=== PATIENT | female | born 1930 | race Caucasian/White ===

== ENCOUNTER 2016-11-21 05:16 | Inpatient (IN) | payer MEDICARE ==
[~2016-11-21] VITALS: Ht 162.6 cm; Wt 42.0 kg
[~2016-11-21 05:16] MED LIST: LIDO700A4 TP
[2016-11-21] MEDS ORDERED: FENTANYL PF 100 MCG/2 ML VIAL. IV ONE (06:00)
[2016-11-21] MEDS ORDERED: ONDANSETRON PF 4 MG/2 ML VIAL. IV ONE (07:00)
[2016-11-21 07:24] LABS: BASO % 0 % (0-3); EOS % 1 % (0-3); HEMATOCRIT 37.9 % (36.0-47.0); LYMPH # 0.9 x10^3/uL (1.0-4.8); LYMPH % 11 % (24-48); MEAN CORPUSCULAR HEMOGLOBIN 29 pg (25-35); MEAN CORPUSCULAR HGB CONC 32 g/dL (31-37); MEAN CORPUSCULAR VOLUME 91 fL (79-100); MONO % 6 % (0-9); NEUT % 81 % (31-73); PLATELET COUNT 172 x10^3/uL (140-400); RED BLOOD COUNT 4.18 x10^6/uL (3.50-5.40); RED CELL DISTRIBUTION WIDTH 14.6 % (11.5-14.5); WHITE BLOOD COUNT 7.9 x10^3/uL (4.0-11.0)
--- NOTE | 2016-11-21 07:27 | RAD ---
Pelvis with left hip, 2 views, 11/21/2016: History: Hip pain There is severe bony demineralization. No acute fracture or dislocation is identified. Cortical irregularity at the level of the left greater trochanters probably chronic. There are mild degenerative changes at the hip joints. IMPRESSION: 1. Demineralization. 2. No acute bony abnormality is detected.
[2016-11-21 07:28] LABS: CALCIUM 9.1 mg/dL (8.5-10.1); CREATININE 0.8 mg/dL (0.6-1.0); GFR 68.3; POTASSIUM 4.4 mmol/L (3.5-5.1)
[2016-11-21 07:34] LABS: ALBUMIN/GLOBULIN RATIO 0.9 (1.0-1.7); TOTAL PROTEIN 6.2 g/dL (6.4-8.2)
--- NOTE | 2016-11-21 07:47 | PHYS DOC ---
Past Medical History Past Medical History: Other Additional Past Medical Histor: HISTORT OF PE, POST HERPETIC NEURALGIA, MUSCLE WEAKNESS, HYPOXEMIA, Past Surgical History: No Surgical History Alcohol Use: None Drug Use: None Adult General Chief Complaint Chief Complaint: HIP PAIN [facility] HPI Patient is a 85 year old female who presents with complaint of left hip pain. The patient was brought from a intermediate after EMS was called due to patient being found on the floor. The patient reportedly rolled out of the bed this morning by accident. Patient states that she is having severe pain in her left hip. Patient states that she is unable to move her left lower extremity due to pain. Patient is unable to quantify the extent of her pain but says that it is a little bit less than what she experienced with childbirth. During triage the patient was reported as having 10 out of 10 pain. Patient denies any other injuries. Patient states that she knows she is currently at [facility] for treatment. Review of Systems Review of Systems Constitutional: Denies fever or chills [] Eyes: Denies change in visual acuity, redness, or eye pain [] HENT: Denies nasal congestion or sore throat [] Respiratory: Denies cough or shortness of breath [] Cardiovascular: No additional information not addressed in HPI [] GI: Denies abdominal pain, nausea, vomiting, bloody stools or diarrhea [] : Denies dysuria or hematuria [] Musculoskeletal: Left hip pain [] Integument: Denies rash or skin lesions [] Neurologic: Denies headache, focal weakness or sensory changes [] Current Medications Current Medications Current Medications Medications (Trade) Dose Ordered Sig/[facility] Start Time Stop Time Status Last Admin Dose Admin Fentanyl Citrate (Fentanyl 2ml Vial) 50 mcg PRN Q15MIN PRN 11/21/16 06:45 11/22/16 06:44 Ondansetron HCl (Zofran) 4 mg 1X ONCE 11/21/16 07:00 11/21/16 07:01 DC Allergies Allergies Allergies Coded Allergies Type Severity Reaction Last Updated Verified No Known Drug Allergies 06/28/16 No Physical Exam Physical Exam Constitutional: Alert, afebrile, appears in moderate to severe discomfort. [] HENT: Normocephalic, atraumatic, bilateral external ears normal, oropharynx moist, no oral exudates, nose normal. [] Eyes: PERRLA, EOMI, conjunctiva normal, no discharge. [] Neck: Normal range of motion, no tenderness, supple, no stridor. [] Cardiovascular:Heart rate regular rhythm, no murmur [] Lungs & Thorax: None restricted air movement bilaterally, no wheezes or rales [] Abdomen: Bowel sounds normal, soft, no tenderness, no masses, no pulsatile masses. [] Skin: Warm, dry, no erythema, no rash. [] Back: No tenderness, no CVA tenderness. [] Extremities: Left lower extremity held in flexed position, left greater trochanteric tenderness to palpation, pulses 2+ distal to site of injury. [] Neurologic: Alert and oriented X 3, normal motor function, normal sensory function, no focal deficits noted. [] Current Patient Data Vital Signs Vital Signs Date Time Temp Pulse Resp B/P Pulse Ox O2 Delivery O2 Flow Rate FiO2 11/21/16 06:08 16 Room Air 11/21/16 05:23 97.9 101 179/84 98 97.9 Lab Values Laboratory Tests Test 11/21/16 07:00 White Blood Count 7.9x10^3/uL (4.0-11.0) Red Blood Count 4.18x10^6/uL (3.50-5.40) Hemoglobin 12.0g/dL (12.0-15.5) Hematocrit 37.9% (36.0-47.0) Mean Corpuscular Volume 91fL (79-100) Mean Corpuscular Hemoglobin 29pg (25-35) Mean Corpuscular Hemoglobin Concent 32g/dL (31-37) Red Cell Distribution Width 14.6% (11.5-14.5) H Platelet Count 172x10^3/uL (140-400) Neutrophils (%) (Auto) 81% (31-73) H Lymphocytes (%) (Auto) 11% (24-48) L Monocytes (%) (Auto) 6% (0-9) Eosinophils (%) (Auto) 1% (0-3) Basophils (%) (Auto) 0% (0-3) Neutrophils # (Auto) 6.4x10^3uL (1.8-7.7) Lymphocytes # (Auto) 0.9x10^3/uL (1.0-4.8) L Monocytes # (Auto) 0.5x10^3/uL (0.0-1.1) Eosinophils # (Auto) 0.1x10^3/uL (0.0-0.7) Basophils # (Auto) 0.0x10^3/uL (0.0-0.2) Sodium Level 148mmol/L (136-145) H Potassium Level 4.4mmol/L (3.5-5.1) Chloride Level 106mmol/L (98-107) Carbon Dioxide Level 37mmol/L (21-32) H Anion Gap 5 (6-14) L Blood Urea Nitrogen 14mg/dL (7-20) Creatinine 0.8mg/dL (0.6-1.0) Estimated GFR (Cockcroft-Gault) 68.3 BUN/Creatinine Ratio 18 (6-20) Glucose Level 118mg/dL (70-99) H Calcium Level 9.1mg/dL (8.5-10.1) Total Bilirubin 1.0mg/dL (0.2-1.0) Aspartate Amino Transferase (AST) 28U/L (15-37) Alanine Aminotransferase (ALT) 26U/L (14-59) Alkaline Phosphatase 85U/L (46-116) Total Protein 6.2g/dL (6.4-8.2) L Albumin 3.0g/dL (3.4-5.0) L Albumin/Globulin Ratio 0.9 (1.0-1.7) L Laboratory Tests 11/21/16 07:00 Laboratory Tests 11/21/16 07:00 EKG EKG Not performed [] Radiology/Procedures Radiology/Procedures [facility] [address] [place] [address] IMAGING REPORT Signed PATIENT: STARLA HOFF ACCOUNT: [id number] : 1930 LOCATION: ER AGE: 85 SEX: F EXAM STATUS: REG ER ORD. PHYSICIAN: LASHANDA HUTCHINSON DO REASON: hip pain PROCEDURE: HIP LEFT 1 VIEW WITH PELVIS Pelvis with left hip, 2 views, 11/21/2016: History: Hip pain There is severe bony demineralization. No acute fracture or dislocation is identified. Cortical irregularity at the level of the left greater trochanters probably chronic. There are mild degenerative changes at the hip joints. IMPRESSION: 1. Demineralization. 2. No acute bony abnormality is detected. DICTATED and SIGNED BY: DANIE GARNER MD DATE: 11/21/16 0719 CC: LASHANDA HUTCHINSON DO; SOFÍA LONDON M.D. ~ [] Course & Med Decision Making Course & Med Decision Making Pertinent Labs and Imaging studies reviewed. (See chart for details) The patient was found to have a left intertrochanteric fracture. The patient will be admitted to the hospital as she is unable to ambulate or care for self. An order was placed for Dr. Hahn to consult on patient in hospital. The patient was admitted to Dr. Wayne. Dragon Disclaimer Dragon Disclaimer This electronic medical record was generated, in whole or in part, using a voice recognition dictation system. Departure Departure Impression: Primary Impression: Intertrochanteric fracture of left femur Additional Impression: Moderate protein malnutrition Disposition: ADMITTED INPATIENT Admitting Physician: Nestor Wayne Condition: STABLE Referrals: SOFÍA LONDON M.D. (PCP) Problem Qualifiers Primary Impression: Intertrochanteric fracture of left femur Encounter type: initial encounter Fracture type: closed Qualified Code: S72.142A - Displaced intertrochanteric fracture of left femur, initial encounter for closed fracture YULISA CERRATO MD Nov 21, 2016 07:47
[2016-11-21] MEDS: FENTANYL PF 100 MCG/2 ML VIAL. IV PRN ×2 (08:43→11:11)
--- NOTE | 2016-11-21 09:30 | ACF ---
Admit Criteria Forms Admit Criteria Forms Admit Criteria Forms MUSCULOSKELETAL DISEASE GRG Clinical Indications for Admission to Inpatient Care (Place 'X' for any and all applicable criteria): Hospital admission is needed for appropriate care of the patient because of ANY ONE of the following: [X]I. Fracture, dislocation, or other musculoskeletal injury requiring inpatient care(medical) as indicated by ANY ONE of the following(4)(5)(6)(7) [ ]a) Vertebral fracture requiring observation for instability or neurologic compromise (8) [ ]b) Compartment syndrome (proven or cannot be ruled out during observation level of care) (9) [ ]c) Limb-threatening injury [ ]d) Major injury requiring inpatient stabilization such as traction initiation or external fixation before internal fixation or closure of complex or open fracture [ ]e) Major injury requiring inpatient treatment after emergency or observation level care (as appropriate) [X]f) Severe pain requiring acute inpatient management [ ]II. Newly diagnosed or suspected bone, joint, or orthopedic device infection (e.g., osteomyelitis, septic arthritis) needing ANY ONE of the following(1)(2)(3) [ ]a) IV antibiotics that cannot be initiated in other than inpatient setting (e.g., patient too unstable or home infusion not available) [ ]b) Device removal or replacement [ ]c) Bone or soft tissue debridement [ ]d) Joint drainage (drain placement or repetitive aspirations) [ ]III. Severe rheumatologic disease (e.g., systemic lupus erythematosus, rheumatoid arthritis) with complications or comorbidities (Also use Optimal Recovery Care Criteria or General Recovery Criteria as appropriate on the basis of predominant condition), including ANY ONE of the following(10 )(11)(12)(13) [ ]a) Severe infection (e.g., GENERAL SERVICE OFFICER infection, sepsis) (14) [ ]b) Respiratory complications, including ANY ONE of the following: [ ]i) Pleural effusion with respiratory compromise [ ]ii) Pulmonary hypertension with congestive failure [ ]iii) Respiratory failure [ ]iv) Pulmonary hemorrhage (15) [ ]c) Hematologic disease, including ANY ONE of the following: [ ]i) Coagulopathy with bleeding [ ]ii) Thrombosis with hypercoagulable state [ ]iii) Thrombotic thrombocytopenic purpura [ ]d) Cerebritis with seizures, psychosis, or other severe abnormalities [ ]e) Vertebral destruction with monitoring needed for cervical myelopathy& possible respiratory compromise [ ]f) Exacerbation that requires inpatient treatment (e.g., intravenous immunosuppression) (16) [ ]g) Acute renal failure [ ]IV. Severe vasculitis with complications or comorbidities (Also use Optimal Recovery Care Criteria or General Recovery Criteria as appropriate on the basis of predominant condition), including ANY ONE of the following(11)(12)(17)(18)(19)(20) [ ]a) GENERAL SERVICE OFFICER vasculitis with seizures, psychosis, or other severe abnormalities (22) [ ]b) Renal failure (16) [ ]c) Pulmonary hemorrhage (15) [ ]d) Cerebral infarction [ ]e) Gastrointestinal ischemia [ ]f) Gangrene or threatened amputation [ ]g) Exacerbation that requires inpatient treatment (e.g., intravenous immunosuppression) (19)(21) [ ]V. Severe myopathy as indicated by ANY ONE of the following (28)(29) [ ]a) New onset of airway compromise or inability to swallow [ ]b) Respiratory deterioration with observation needed for impending respiratory failure [ ]c) Exacerbation that requires inpatient treatment (e.g., intravenous immunosuppression) [ ]. Severe gout (crystal arthropathy) as indicated by ANY ONE of the following (23)(24) [ ]a) Severe pain requiring acute inpatient management [ ]b) Exacerbation that requires inpatient treatment (e.g., intravenous treatment) [ ]VII.Rhabdomyolysis and ANY ONE of the following (25)(26)(27) [ ]a) Acute renal failure [ ]b) Need for intravenous hydration after emergency or observation level care (as appropriate) [ ]c) Inability to maintain oral hydration [ ]d) Change in mental status [ ]e) Electrolyte abnormality that remains after emergency or observation level care (as appropriate) [ ]VIII Post amputation complication, as indicated by ANY ONE of the following [ ]a) Infection [ ]b) Dehiscence [ ]c) Myodesis failure [ ]IX. Severe pain requiring acute inpatient management as indicated by ALL of the following (30)(31)(32) [ ]a) Continuous or frequent (e.g., every 2 to 4 hrs) parenteral analgesics required [A] [ ]b) Rapid improvement expected from treatment or acute intervention ( e.g., surgery, anesthesia procedure[B] [ ]X. Musculoskeletal Disease and ALL of the following: [ ]a) Symptom or finding for which emergency and observation care have failed or are not considered appropriate (Use General Criteria: Observation Care as appropriate) [ ]b) Presence of ANY ONE of the following [ ]i) A General Admission Criteria [ ]ii) A Pediatric General Admission Criteria The original [facility] content created by [facility] has been revised. The portions of the content which have been revised are identified through the use of italic text or in bold, and [facility] has neither reviewed nor approved the modified material. All other unmodified content is copyright [facility]. Please see references footnoted in the original [facility] edition 2016 JULIA HATHAWAY Nov 21, 2016 09:30
--- NOTE | 2016-11-21 10:15 | RAD ---
CT of the pelvis without contrast, 11/21/2016: History: Fall, suspected left hip fracture Noncontrast scans were obtained with multiplanar reconstructions produced. There is a fracture of the proximal left femur at the junction of the base of the femoral neck with the greater trochanter. The greater trochanteric fracture fragment is mildly comminuted with posterior displacement of fracture fragments. A major fracture line extending through the intertrochanteric region is not seen. There is a fracture of the left superior pubic ramus at its junction with the left pubic body. The fracture is slightly impacted. There is also a nondisplaced fracture of the medial aspect of the inferior pubic ramus on the left which appears to be recent. No other acute fractures identified. There are mild degenerative changes at both hip joints. A small hematoma is noted in the left gluteal musculature. The urinary bladder is mildly distended. IMPRESSION: 1. Acute comminuted fracture of the proximal left femur at the base of the greater trochanter. 2. Nondisplaced fractures of the inferior and superior pubic rami of the left which also appear to be recent.
[2016-11-21] MEDS: IV 1/2 NORMAL SALINE 1,000 ML IV SCH (15:04)
[2016-11-21 15:40] VITALS: BP 146/67
[2016-11-21] MEDS ORDERED: ASPI-482 PO (16:18)
[2016-11-21 16:34] LABS: INR 1.1 (0.8-1.1); PROTHROMBIN TIME PATIENT 13.2 SEC (11.7-14.0)
[2016-11-21] MEDS: MORPHINE SULFATE 2 MG/ML DISP.SYRIN. IV PRN ×2 (17:00→22:41)
[2016-11-21 19:00] VITALS: BP 116/52
[2016-11-21 23:00] VITALS: BP 133/59
[2016-11-22] MEDS: IV 1/2 NORMAL SALINE 1,000 ML IV SCH ×3 (02:08→17:34)
[2016-11-22 03:00] VITALS: BP 125/58
--- NOTE | 2016-11-22 04:36 | HP ---
ADMIT DATE: 11/21/2016 CHIEF COMPLAINT: Hip fracture. HISTORY OF PRESENT ILLNESS: The patient is an 85-year-old detention patient who had an unfortunate fall at the detention, apparently rolling out of her bed this morning. She had severe pain in her left hip, unable to move her extremities. In the Emergency Room, she was found with acute comminuted fracture of the proximal left femur at the base of the greater trochanter as well as nondisplaced fractures of the inferior and superior pubic rami on the left. The patient is therefore admitted for further pain control. ER doctor spoke with Dr. Hahn from [facility]. PAST MEDICAL HISTORY: (Please note this was obtained from the chart as the patient is quite confused). History of PE, postherpetic neuralgia, general muscle weakness, and history of hypoxemia. FAMILY HISTORY: Unable to obtain. SOCIAL HISTORY: The patient currently in a detention. No toxic habits. ALLERGIES: No known drug allergies. HOME MEDICATIONS: Reconciled with MAR. REVIEW OF SYSTEMS: The patient does have pain when she moves. Denies any pain while at rest. She is quite confused and does not remember when she got her last pain medications. She is determined to get up as she feels that would be the appropriate thing to do. Otherwise fairly pleasant, unable to recollect further details. PHYSICAL EXAMINATION: VITAL SIGNS: From today show a blood pressure of 116/52, heart rate of 82, respiratory rate at 20. She is afebrile. GENERAL: This is an 85-year-old woman, frail, malnourished, awake, alert, but confused. HEENT: Shows no scleral icterus. Oral mucosa is pink and moist. NECK: Supple. LUNGS: Clear to auscultation bilaterally. CARDIOVASCULAR: Regular rate and rhythm. ABDOMEN: Positive bowel sounds, soft, nontender. EXTREMITIES: Show no edema. Left lower extremity has significant pain with minimal movement and palpation in the upper femoral area. Mild edema noted on the left ankle as well. SKIN: No bruising apparent. LABORATORY DATA: CBC from today shows a WBC of 7.9, hemoglobin 12, platelets of 172. Chemistries with a BUN and creatinine of 14 and 0.8, sodium at 148, CO2 at 37, albumin at 3.0. LFTs within normal. IMAGING: CT of the pelvis with left trochanteric and pubic rami fractures as above. ASSESSMENT AND PLAN: The patient is an 85-year-old who unfortunately sustained trochanteric hip fracture on the left after mechanical fall. We will await input from Dr. Hahn regarding surgical options. For the time being, we will continue pain medications. She is able to eat today. We will make her n.p.o. in the morning in anticipation for possible surgery. We will start Lovenox after probable surgery. TUNG HERNÁNDEZ MD DR: UR/nts JOB#: [id number] / [id number] SOFÍA Lutz MD MTDD
--- NOTE | 2016-11-22 06:10 | CONS ---
DATE OF CONSULTATION: 11/21/2016 REASON FOR CONSULTATION: Left hip pain. HISTORY OF PRESENT ILLNESS: The patient is an 85-year-old female who was apparently rolled out of bed this morning and was found on the floor and EMS was called and brought in to the Emergency Department. She spent most of the day in the ER because the hospital was otherwise full. She reports severe pain in her left hip and is unable to move the left leg. She denies any loss of consciousness or other injuries, was previously independently ambulatory. PAST MEDICAL HISTORY: Significant for history of pulmonary embolism, some shingles, hypoxia and some muscle weakness. Denies any previous surgical history. ALLERGIES: No known drug allergies. FAMILY HISTORY: No significant family history. REVIEW OF SYSTEMS: Significant really for the left hip pain on any motion or weightbearing. She denies any focal weakness, numbness, tingling or other extremity involvement. SOCIAL HISTORY: Independently ambulatory. Denies alcohol, drug use or smoking. PHYSICAL EXAMINATION: EXTREMITIES: Painful with any range of motion of the left hip. No gross instability is noted. Leg lengths are equal. She has normal examination of the contralateral hip, but has pain with weightbearing through an extended extremity and is weak in abduction, negative straight leg raise. She has normal knee and ankle range of motion with intact motor function, distal pulses, sensation, reflexes and skin in both lower extremities throughout. IMAGING: X-rays including a CT scan of the pelvis show a nondisplaced fracture of the greater trochanter and acceptably aligned inferior and superior pubic rami fractures on the left. IMPRESSION: Left greater trochanter and nondisplaced superior and inferior pubic rami fractures. TREATMENT PLAN: I had talked to her about the nonoperative nature of this injury that she can do protected weightbearing with a walker that these fractures would generally heal slowly, but are expected to be nonoperative in nature. I am going to get her a lay tray, so she can eat and put in orders for physical therapy tomorrow, so she can ambulate with some pain control. MARY LOU PATEL MD DR: BRUCE/ulices JOB#: [id number] / [id number]
[2016-11-22 07:00] VITALS: BP 122/62
[2016-11-22] MEDS: MORPHINE SULFATE 2 MG/ML DISP.SYRIN. IV PRN (10:59)
[2016-11-22 11:00] VITALS: BP 118/62
[2016-11-22] MEDS: LIDOCAINE (700MG/PATCH) PATCH. TD SCH (13:00)
[2016-11-22] MEDS: HYDROCODONE/APAP 7.5/325MG TABLET. PO PRN (13:00)
--- NOTE | 2016-11-22 14:14 | PDOC ---
PROGRESS NOTES Chief Complaint Chief Complaint 1. Left greater trochanter and nondisplaced superior and inferior pubic rami fractures. 2. h/o PE 3. H/O postherpetic neuralgia 4. low po intake, chronic 5. mild malnutrition 6. hypernatremia plan: 1. fu with ortho, no sx 2. protected WBAT 3. pain control 4. dc mora tmr ivf labs tmr vtid test pending SW for rehab left rib XR to rule out fx History of Present Illness History of Present Illness c/o left rib pain very sensitive to touch Vitals Vitals Vital Signs Date Time Temp Pulse Resp B/P Pulse Ox O2 Delivery O2 Flow Rate FiO2 11/22/16 14:04 Nasal Cannula 3.0 11/22/16 11:00 98.2 76 12 118/62 100 98.2 Physical Exam General: Alert, Oriented X3, Cooperative Heart: Regular rate, Normal S1, Normal S2 Lungs: Clear Abdomen: Normal bowel sounds, Soft Extremities: No clubbing, No cyanosis Labs LABS Laboratory Tests Test 11/21/16 16:00 Nasal Screen MRSA (PCR) Negative (Negative) Review of Systems Review of Systems no fever, chills, sob or chest pain Assessment and Plan Assessmemt and Plan Problems Medical Problems: (1) Intertrochanteric fracture of left femur Status: Acute (2) Moderate protein malnutrition Status: Acute Problems: Comment Review of Relevant I have reviewed the following items nidhi (where applicable) has been applied. Labs Laboratory Tests Test 11/21/16 07:00 11/21/16 16:00 White Blood Count 7.9x10^3/uL (4.0-11.0) Red Blood Count 4.18x10^6/uL (3.50-5.40) Hemoglobin 12.0g/dL (12.0-15.5) Hematocrit 37.9% (36.0-47.0) Mean Corpuscular Volume 91fL (79-100) Mean Corpuscular Hemoglobin 29pg (25-35) Mean Corpuscular Hemoglobin Concent 32g/dL (31-37) Red Cell Distribution Width 14.6% (11.5-14.5) Platelet Count 172x10^3/uL (140-400) Neutrophils (%) (Auto) 81% (31-73) Lymphocytes (%) (Auto) 11% (24-48) Monocytes (%) (Auto) 6% (0-9) Eosinophils (%) (Auto) 1% (0-3) Basophils (%) (Auto) 0% (0-3) Neutrophils # (Auto) 6.4x10^3uL (1.8-7.7) Lymphocytes # (Auto) 0.9x10^3/uL (1.0-4.8) Monocytes # (Auto) 0.5x10^3/uL (0.0-1.1) Eosinophils # (Auto) 0.1x10^3/uL (0.0-0.7) Basophils # (Auto) 0.0x10^3/uL (0.0-0.2) Prothrombin Time 13.2SEC (11.7-14.0) Prothromb Time International Ratio 1.1 (0.8-1.1) Sodium Level 148mmol/L (136-145) Potassium Level 4.4mmol/L (3.5-5.1) Chloride Level 106mmol/L (98-107) Carbon Dioxide Level 37mmol/L (21-32) Anion Gap 5 (6-14) Blood Urea Nitrogen 14mg/dL (7-20) Creatinine 0.8mg/dL (0.6-1.0) Estimated GFR (Cockcroft-Gault) 68.3 BUN/Creatinine Ratio 18 (6-20) Glucose Level 118mg/dL (70-99) Calcium Level 9.1mg/dL (8.5-10.1) Total Bilirubin 1.0mg/dL (0.2-1.0) Aspartate Amino Transf (AST/SGOT) 28U/L (15-37) Alanine Aminotransferase (ALT/SGPT) 26U/L (14-59) Alkaline Phosphatase 85U/L (46-116) Total Protein 6.2g/dL (6.4-8.2) Albumin 3.0g/dL (3.4-5.0) Albumin/Globulin Ratio 0.9 (1.0-1.7) Nasal Screen MRSA (PCR) Negative (Negative) Laboratory Tests Test 11/21/16 16:00 Nasal Screen MRSA (PCR) Negative (Negative) Medications Current Medications Fentanyl Citrate (Fentanyl 2ml Vial) 50 mcg 1X ONCE IV Last administered on 06:08; Start 11/21/16 at 06:00; Stop 11/21/16 at 06:01; Status DC Fentanyl Citrate (Fentanyl 2ml Vial) 50 mcg PRN Q15MIN PRN IV PAIN GREATER THAN 3/10 Last administered on 11/21/16 11:11; Start 11/21/16 at 06:45; Stop at 06:44; Status DC Ondansetron HCl 4 mg 4 mg 1X ONCE IV ; Start 11/21/16 at 07:00; Stop 11/21/16 at 07:01; Status DC Sodium Chloride (Iv Sodium Chloride 0.45%) 1,000 ml @ 100 mls/hr Q10H IV Last administered on 11/22/16 10:58; Start 11/21/16 at 13:30 Morphine Sulfate 1-2 mg every 3 hours ... PRN Q3HRS PRN IV PAIN Last administered on 11/22/16 10:59; Start 11/21/16 at 13:30 Acetaminophen/ Hydrocodone Bitart (Lortab 7.5/325) 1 tab PRN Q6HRS PRN PO PAIN Last administered on 11/22/16 13:00; Start 11/22/16 at 12:15 Lidocaine (Lidoderm) 1 patch DAILY TD Last administered on 11/22/16 13:00; Start 11/22/16 at 12:30 Active Scripts Active Lidoderm (Lidocaine) 700 Mg Adh..patch 1 Patch TP DAILY Apply to the affected area daily. Reported Aspir 81 (Aspirin) 81 Mg Tablet. 1 Tab PO DAILY Vitals/I & O Vital Sign - Last 24 Hours 11/21/16 11/21/16 11/21/16 11/21/16 15:00 15:40 15:40 15:45 Temp 97.0 97.0 97.0 97.0 Pulse 86 53 53 Resp 19 18 18 B/P 135/59 146/67 146/67 Pulse Ox 100 92 92 O2 Delivery Nasal Cannula Nasal Cannula Nasal Cannula Nasal Cannula O2 Flow Rate 2 2.0 2.0 2.0 11/21/16 11/21/16 11/21/16 11/21/16 17:00 19:00 19:50 22:41 Temp 98.2 98.2 Pulse 82 Resp 20 20 B/P 116/52 Pulse Ox 99 O2 Delivery Nasal Cannula Nasal Cannula Nasal Cannula Nasal Cannula O2 Flow Rate 2.0 2.0 3.0 3.0 11/21/16 11/21/16 11/22/16 11/22/16 23:00 23:11 03:00 07:00 Temp 98.5 98.4 97.8 98.5 98.4 97.8 Pulse 84 94 91 Resp 18 20 20 12 B/P 133/59 125/58 122/62 Pulse Ox 100 97 90 O2 Delivery Nasal Cannula Nasal Cannula Nasal Cannula O2 Flow Rate 2.0 2.0 3.0 11/22/16 11/22/16 11/22/16 11/22/16 10:59 11:00 11:30 13:00 Temp 98.2 98.2 Pulse 76 Resp 12 B/P 118/62 Pulse Ox 100 O2 Delivery Nasal Cannula Nasal Cannula Nasal Cannula Nasal Cannula O2 Flow Rate 2.0 3.0 2.0 2.0 11/22/16 14:04 O2 Delivery Nasal Cannula O2 Flow Rate 3.0 Intake and Output 11/21/16 11/21/16 11/22/16 15:00 23:00 07:00 Intake Total 0 ml 2620 ml Balance 0 ml 2620 ml LOPEZ MAX MD Nov 22, 2016 14:14
[2016-11-22] MEDS ORDERED: ONDANSETRON PF 4 MG/2 ML VIAL. IV PRN (14:15)
[2016-11-22] MEDS ORDERED: ACETAMINOPHEN 325 MG TABLET. PO PRN (14:15)
[2016-11-22 15:00] VITALS: BP 110/49
--- NOTE | 2016-11-22 15:54 | RAD ---
Left RIBS, 3 views, 11/22/2016: History: Trauma, pain The bony structures are demineralized. No rib fracture is identified. Several thoracic vertebral compression fractures are noted of indeterminate ages. Blunting left lateral costophrenic angles unchanged since 06/28/2016 and is presumably due to scarring. There is moderate aortic atherosclerosis. IMPRESSION: 1. Demineralization. 2. No acute left rib abnormality is detected. 3. Thoracic vertebral compression fractures of indeterminate ages.
[2016-11-22] MEDS: ASPIRIN 81 MG TAB.CHEW PO SCH (17:34)
[2016-11-22 19:00] VITALS: BP 114/49
[2016-11-22 23:00] VITALS: BP 104/49
[2016-11-23] MEDS: IV 1/2 NORMAL SALINE 1,000 ML IV SCH (00:06)
[2016-11-23 03:06] VITALS: BP 109/50
[2016-11-23 04:43] LABS: CALCIUM 8.2 mg/dL (8.5-10.1); CREATININE 0.7 mg/dL (0.6-1.0); GFR 79.7; POTASSIUM 3.2 mmol/L (3.5-5.1)
[2016-11-23 04:45] LABS: BASO % 0 % (0-3); EOS % 2 % (0-3); HEMATOCRIT 31.9 % (36.0-47.0); HEMOGLOBIN 10.4 g/dL (12.0-15.5); LYMPH % 12 % (24-48); MEAN CORPUSCULAR HEMOGLOBIN 29 pg (25-35); MEAN CORPUSCULAR HGB CONC 33 g/dL (31-37); MEAN CORPUSCULAR VOLUME 90 fL (79-100); MONO % 9 % (0-9); NEUT % 78 % (31-73); PLATELET COUNT 118 x10^3/uL (140-400); RED BLOOD COUNT 3.56 x10^6/uL (3.50-5.40); WHITE BLOOD COUNT 8.7 x10^3/uL (4.0-11.0)
[2016-11-23] MEDS: MORPHINE SULFATE 2 MG/ML DISP.SYRIN. IV PRN (06:35)
[2016-11-23 07:00] VITALS: BP 116/56
[2016-11-23] MEDS: ASPIRIN 81 MG TAB.CHEW PO SCH (08:57)
[2016-11-23] MEDS: LIDOCAINE (700MG/PATCH) PATCH. TD SCH (08:59)
[2016-11-23] MEDS: HYDROCODONE/APAP 7.5/325MG TABLET. PO PRN (09:01)
[2016-11-23] MEDS: CHOLECALCIFEROL (VITAMIN D3) 1,000 UNIT TABLET PO SCH (09:04)
--- NOTE | 2016-11-23 09:50 | PDOC ---
PROGRESS NOTES Chief Complaint Chief Complaint s/p fall Hip and pelvis fx ASSESSMENT AND PLAN: 1. Left greater trochanter and nondisplaced superior and inferior pubic rami fractures: nonsurgical treatment 2. Rib pain: no fx seen on xrays, suspect bruise. treat symptomatically 3. Pain control: on IV morphine; switch to PO regimen. add laxative for constip ASE 4. Hypernatremia: resolved. moniotr with IVF rx 5. Hypokalemia: worsening. replete orally 6. Vit D deficiency: start repletion 7. Osteoporosis: evident on Xrays and CT. Ca plus Vit D. consider reclast annually on O/P basis 8. Cachexia: encourage PO intake, supplements 9. Protein malnutrition: mild 10. Hx PE 11. Hx postherpetic neuralgia 12. Prophylaxis: heparin 13. Dispo: [facility] Vitals Vitals Vital Signs Date Time Temp Pulse Resp B/P Pulse Ox O2 Delivery O2 Flow Rate FiO2 11/23/16 09:01 Room Air 11/23/16 07:00 97.9 68 16 116/56 94 3.0 97.9 Physical Exam General: Alert, Oriented X3, Cooperative Heart: Regular rate, Normal S1, Normal S2 Lungs: Clear Abdomen: Normal bowel sounds, Soft Extremities: No clubbing, No cyanosis Labs LABS Laboratory Tests Test 11/23/16 03:57 White Blood Count 8.7x10^3/uL (4.0-11.0) Red Blood Count 3.56x10^6/uL (3.50-5.40) Hemoglobin 10.4g/dL (12.0-15.5) Hematocrit 31.9% (36.0-47.0) Mean Corpuscular Volume 90fL (79-100) Mean Corpuscular Hemoglobin 29pg (25-35) Mean Corpuscular Hemoglobin Concent 33g/dL (31-37) Red Cell Distribution Width 15.0% (11.5-14.5) Platelet Count 118x10^3/uL (140-400) Neutrophils (%) (Auto) 78% (31-73) Lymphocytes (%) (Auto) 12% (24-48) Monocytes (%) (Auto) 9% (0-9) Eosinophils (%) (Auto) 2% (0-3) Basophils (%) (Auto) 0% (0-3) Neutrophils # (Auto) 6.8x10^3uL (1.8-7.7) Lymphocytes # (Auto) 1.0x10^3/uL (1.0-4.8) Monocytes # (Auto) 0.8x10^3/uL (0.0-1.1) Eosinophils # (Auto) 0.2x10^3/uL (0.0-0.7) Basophils # (Auto) 0.0x10^3/uL (0.0-0.2) Sodium Level 139mmol/L (136-145) Potassium Level 3.2mmol/L (3.5-5.1) Chloride Level 102mmol/L (98-107) Carbon Dioxide Level 34mmol/L (21-32) Anion Gap 3 (6-14) Blood Urea Nitrogen 13mg/dL (7-20) Creatinine 0.7mg/dL (0.6-1.0) Estimated GFR (Cockcroft-Gault) 79.7 Glucose Level 109mg/dL (70-99) Calcium Level 8.2mg/dL (8.5-10.1) Review of Systems Review of Systems c/o pain with moving, active or passive. TUNG HERNÁNDEZ MD Nov 23, 2016 09:50
[2016-11-23] MEDS: POTASSIUM CHLORIDE 20 MEQ TABLET.ER. PO SCH ×2 (10:49→17:00)
[2016-11-23] MEDS: CALCIUM CARB/VIT D3 500/200 TABLET PO SCH ×2 (10:49→17:56)
[2016-11-23] MEDS: HEPARIN PF for SUB-Q USE 5,000 UNIT/0.5 ML VIAL. SQ SCH ×2 (11:03→20:25)
[2016-11-23 11:11] VITALS: BP 117/47
[2016-11-23 15:00] VITALS: BP 114/54
[2016-11-23] MEDS ORDERED: POTASSIUM CHLORIDE 20MEQ 50 ML IV SCH (17:00)
[2016-11-23] MEDS: POTASSIUM CHLORIDE 10MEQ 100 ML IV SCH ×4 (17:54→20:26)
[2016-11-23 19:30] VITALS: BP 112/57
[2016-11-23 23:36] VITALS: BP 137/64
[2016-11-24] MEDS: HYDROCODONE/APAP 7.5/325MG TABLET. PO PRN ×2 (00:14→06:16)
[2016-11-24 03:10] VITALS: BP 118/50
[2016-11-24 07:00] VITALS: BP 124/55
[2016-11-24 08:07] LABS: BASO % 0 % (0-3); EOS % 2 % (0-3); HEMATOCRIT 33.8 % (36.0-47.0); HEMOGLOBIN 10.1 g/dL (12.0-15.5); LYMPH % 14 % (24-48); MEAN CORPUSCULAR HEMOGLOBIN 29 pg (25-35); MEAN CORPUSCULAR HGB CONC 30 g/dL (31-37); MEAN CORPUSCULAR VOLUME 96 fL (79-100); MONO % 10 % (0-9); NEUT % 74 % (31-73); PLATELET COUNT 121 x10^3/uL (140-400); RED BLOOD COUNT 3.53 x10^6/uL (3.50-5.40); RED CELL DISTRIBUTION WIDTH 15.8 % (11.5-14.5); WHITE BLOOD COUNT 7.1 x10^3/uL (4.0-11.0)
[2016-11-24 08:09] LABS: CALCIUM 8.3 mg/dL (8.5-10.1); CREATININE 0.5 mg/dL (0.6-1.0); GFR 117.5; MAGNESIUM 1.9 mg/dL (1.8-2.4); POTASSIUM 4.4 mmol/L (3.5-5.1)
[2016-11-24] MEDS: CHOLECALCIFEROL (VITAMIN D3) 1,000 UNIT TABLET PO SCH (10:40)
[2016-11-24] MEDS: LIDOCAINE (700MG/PATCH) PATCH. TD SCH (10:40)
[2016-11-24] MEDS: ASPIRIN 81 MG TAB.CHEW PO SCH (10:40)
[2016-11-24] MEDS: CALCIUM CARB/VIT D3 500/200 TABLET PO SCH (10:40)
[2016-11-24] MEDS: HEPARIN PF for SUB-Q USE 5,000 UNIT/0.5 ML VIAL. SQ SCH (10:45)
[2016-11-24 11:00] VITALS: BP 103/41
[2016-11-24] MEDS ORDERED: HYDR-2762 PO (12:30)
[2016-11-24] MEDS ORDERED: CHOL10002 PO (12:30)
[2016-11-24] MEDS ORDERED: CALC-47 PO (12:30)
[2016-11-24] MEDS ORDERED: LIDO700A4 TD (12:30)
[2016-11-24 15:00] VITALS: BP 114/36
--- NOTE | 2016-11-24 16:08 | PDOC3 ---
Discharge Summary [facility] Date of Admission: Nov 21, 2016 Discharge Date: Nov 24, 2016 Admitting Diagnosis 1. Left greater trochanter and nondisplaced superior and inferior pubic rami fractures. 2. h/o PE 3. H/O postherpetic neuralgia 4. low po intake, chronic 5. mild malnutrition 6. hypernatremia Problems: Final Diagnosis Problems Medical Problems: (1) Intertrochanteric fracture of left femur Status: Acute (2) Moderate protein malnutrition Status: Acute (3) Rib pain on right side Status: Acute CONSULTS ortho Brief Hospital Course Ms. Medrano is a 85 old F, independent, no dementia, came post fall, and was found hip and pelvic fx. no sx. dc to rehab with partial weight bearinG PT. h/o PE, only on ASA. dc time 35min General: Alert, Oriented X3, Cooperative Heart: Regular rate, Normal S1, Normal S2 Lungs: Clear Abdomen: Normal bowel sounds, Soft Extremities: No clubbing, No cyanosis Patient History: Patient reports no known family medical history. Problems: Disposition rehab CONDITION AT DISCHARGE: Improved Diet regular Scheduled Aspirin (Aspir 81) 1 TAB PO DAILY (Reported) Calcium Carbonate/Vitamin D3 (Calcium 500 + Vit D 200 Tablet) 1 TAB PO BIDWMEALS Cholecalciferol (Vitamin D3) (Vitamin D) 1,000 UNIT PO DAILY Lidocaine (Lidoderm) 1 PATCH TP DAILY Lidocaine (Lidoderm) 1 PATCH TD DAILY Scheduled PRN Hydrocodone Bit/Acetaminophen (Hydrocodone-Apap 7.5-325 ) 1 TAB PO PRN Q6HRS PRN PRN PAIN Follow Up ortho in 2 weeks LOPEZ MAX MD Nov 24, 2016 16:08
== END 2016-11-24 16:15 | DRG 963 ==
LOC: ER 05:16 → ED HOLD 06:21 → 4 NORTH 15:35
PROVIDERS: ADMIT Internal Medicine; ATTEND Internal Medicine
DX: S72.115A Nondisplaced fracture of greater trochanter of left femur, initial encounter for closed fracture (principal); G93.41 Metabolic encephalopathy; S32.512A Fracture of superior rim of left pubis, initial encounter for closed fracture; E44.0 Moderate protein-calorie malnutrition; E87.0 Hyperosmolality and hypernatremia; Z68.1 Body mass index [BMI] 19.9 or less, adult; M81.0 Age-related osteoporosis without current pathological fracture; W06.XXXA Fall from bed, initial encounter; Y93.89 Activity, other specified; Y92.128 Other place in nursing home as the place of occurrence of the external cause; Y99.8 Other external cause status; Z86.711 Personal history of pulmonary embolism
CPT/HCPCS: 36415; 51702; 71100; 72192; 73501; 80048; 80053; 82306; 83735; 85027; 85610; 87641; 96374; 96376; J2270; J3010; J3480; 99285-25

== ENCOUNTER 2016-12-25 09:22 | Inpatient (IN) | payer MEDICARE ==
[~2016-12-25] VITALS: Ht 162.6 cm; Wt 38.6 kg
[~2016-12-25 09:22] MED LIST changes: +ASPI-482 PO; +CALC-47 PO; +CHOL10002 PO; +HYDR-2762 PO; +LIDO700A4 TD
[2016-12-25 09:45] LABS: BASO % 0 % (0-3); EOS % 0 % (0-3); HEMATOCRIT 34.1 % (36.0-47.0); HEMOGLOBIN 10.5 g/dL (12.0-15.5); LYMPH # 0.6 x10^3/uL (1.0-4.8); LYMPH % 5 % (24-48); MEAN CORPUSCULAR HEMOGLOBIN 30 pg (25-35); MEAN CORPUSCULAR HGB CONC 31 g/dL (31-37); MEAN CORPUSCULAR VOLUME 98 fL (79-100); MONO % 11 % (0-9); NEUT % 84 % (31-73); PLATELET COUNT 322 x10^3/uL (140-400); RED CELL DISTRIBUTION WIDTH 19.2 % (11.5-14.5); WHITE BLOOD COUNT 11.5 x10^3/uL (4.0-11.0)
[2016-12-25 09:49] LABS: CALCIUM 8.8 mg/dL (8.5-10.1); CREATININE 2.9 mg/dL (0.6-1.0); GFR 15.5; POTASSIUM 5.6 mmol/L (3.5-5.1)
[2016-12-25 09:55] LABS: ALBUMIN 3.2 g/dL (3.4-5.0); ALBUMIN/GLOBULIN RATIO 1.1 (1.0-1.7); TOTAL BILIRUBIN 1.5 mg/dL (0.2-1.0); TOTAL PROTEIN 6.2 g/dL (6.4-8.2)
[2016-12-25] MEDS ORDERED: PIP/TAZO PER PHARMACY MC PRN (10:00)
[2016-12-25] MEDS ORDERED: PIPERACILLIN/TAZOBACTAM 2.25 GM in IV NORMAL SALINE 50ML 50 ML IV ONE (10:00)
[2016-12-25] MEDS ORDERED: IV NORMAL SALINE 1000ML BAG 1,000 ML IV ONE ×2 (10:00→12:45)
[2016-12-25] MEDS ORDERED: VANCOMYCIN PER PHARMACY MC PRN (10:00)
[2016-12-25] MEDS ORDERED: VANCOMYCIN 1 GM in IV NORMAL SALINE 250ML 250 ML IV ONE (10:00)
[2016-12-25 10:10] LABS: INR 1.6 (0.8-1.1); PROTHROMBIN TIME PATIENT 17.7 SEC (11.7-14.0)
[2016-12-25] MEDS ORDERED: DEXTROSE 50% 25 GM / 50ML DISP.SYRIN. IV ONE ×2 (10:15→10:18)
[2016-12-25] MEDS ORDERED: DEXMEDETOMIDINE 200 MCG in IV NORMAL SALINE 50ML 48 ML IV PRN ×2 (10:15→10:30)
[2016-12-25] MEDS ORDERED: IV NORMAL SALINE 500ML BAG 500 ML IV PRN (10:15)
[2016-12-25] MEDS ORDERED: CALCIUM GLUCONATE 1,000 MG/10 ML VIAL IVP ONE (10:15)
[2016-12-25] MEDS ORDERED: ATROPINE 0.5 MG/5 ML DISP.SYRIN. IV PRN (10:15)
[2016-12-25] MEDS ORDERED: PANTOPRAZOLE IV PUSH 40 MG VIAL. IVP ONE (10:15)
--- NOTE | 2016-12-25 10:16 | RAD ---
Indication: Unresponsive. Technique: Supine portable chest radiograph was obtained and compared to a study from June 28, 2016. Findings: Endotracheal tube and endogastric tube are in place. The lungs are hyperinflated. There is no airspace disease. The heart is not enlarged. There is no heart failure. There is probably a small hiatal hernia. Pads and leads overlie the patient. Impression: 1. Endotracheal tube and endogastric tube are in place. 2. Suspected emphysema.
[2016-12-25] MEDS ORDERED: IV NORMAL SALINE 1000ML BAG 1,000 ML IV SCH ×2 (10:21→11:01)
--- NOTE | 2016-12-25 10:21 | PHYS DOC ---
Past Medical History Past Medical History: Other Additional Past Medical Histor: HISTORT OF PE, POST HERPETIC NEURALGIA, MUSCLE WEAKNESS, HYPOXEMIA, Past Surgical History: No Surgical History Alcohol Use: None Drug Use: None Adult General Chief Complaint Chief Complaint: ALTERED MENTAL STATUS HPI HPI Patient is a 85 year old female who presents with unresponsiveness. Patient brought from [facility] after she was found unresponsive and with agonal respirations this morning. Patient had recently been sent there after being discharged from [facility] after suffering a hip fracture. Patient's son reports over the past couple days she has had declining mental status. Patient unresponsive and unable to contribute to history. Review of Systems Review of Systems Unable to obtain review of systems as patient is unresponsive Current Medications Current Medications Current Medications Medications (Trade) Dose Ordered Sig/Dennise Start Time Stop Time Status Last Admin Dose Admin Atropine Sulfate 0.5 mg PRN Q5MIN PRN 12/25/16 10:15 12/25/16 16:41 DC Calcium Gluconate 1000 mg 1,000 mg 1X ONCE 12/25/16 10:15 12/25/16 10:18 DC 12/25/16 10:24 1,000 MG Dexmedetomidine HCl 200 mcg/ Sodium Chloride 50 ml @ 0 mls/hr CONT PRN 12/25/16 10:15 UNV Dextrose 25 gm 1X ONCE 12/25/16 10:15 12/25/16 10:18 DC 12/25/16 10:24 25 GM Pantoprazole Sodium (Protonix Vial) 40 mg 1X ONCE 12/25/16 10:15 12/25/16 10:18 DC 12/25/16 10:25 40 MG Piperacillin Sod/ Tazobactam Sod 1 each 1 each PRN DAILY PRN 12/25/16 10:00 12/25/16 16:41 DC Piperacillin Sod/ Tazobactam Sod/ Sodium Chloride (Zosyn/Iv Sodium Chloride 0.9% 50ml) 50 ml @ 100 mls/hr 1X ONCE 12/25/16 10:00 12/25/16 10:29 DC 12/25/16 10:15 100 MLS/HR Sodium Chloride (Iv Sodium Chloride 0.9% 500ml Bag) 500 ml @ 500 mls/hr 1X PRN PRN 12/25/16 10:15 12/25/16 16:41 DC Sodium Chloride (Iv Sodium Chloride 0.9% 1000ml Bag) 1,000 ml @ 250 mls/hr 1X ONCE 12/25/16 10:00 12/25/16 14:05 DC 12/25/16 10:10 250 MLS/HR Vancomycin HCl (Vanco Per Pharmacy) 1 each PRN DAILY PRN 12/25/16 10:00 12/25/16 16:41 DC 12/25/16 12:49 1 EACH Vancomycin HCl 1 gm/Sodium Chloride 250 ml @ 250 mls/hr 1X ONCE 12/25/16 10:00 12/25/16 10:59 DC 12/25/16 10:14 250 MLS/HR Allergies Allergies Allergies Coded Allergies Type Severity Reaction Last Updated Verified No Known Drug Allergies 06/28/16 No Physical Exam Physical Exam Constitutional: Well developed, well nourished, unresponsive HENT: Normocephalic, atraumatic, bilateral external ears normal Eyes: Pupils 3mm b/l ERRL, EOMI, conjunctiva normal, no discharge Neck: No stridor Cardiovascular:Tachycardic, regular rhythm, no murmur Lungs & Thorax: Bilateral breath sounds clear to auscultation Abdomen: Bowel sounds normal, soft, non-distended, no apparent TTP; black stool present in brief Skin: Warm, dry, no erythema, no rash Extremities: No obvious deformity, no edema Neurologic: GCS 3 Current Patient Data Vital Signs Vital Signs Date Time Temp Pulse Resp B/P Pulse Ox O2 Delivery O2 Flow Rate FiO2 12/25/16 10:15 114 21 151/63 100 Ventilator 12/25/16 09:25 97.2 15 97.2 Lab Values Laboratory Tests Test 12/25/16 09:25 White Blood Count 11.5x10^3/uL (4.0-11.0) H Red Blood Count 3.50x10^6/uL (3.50-5.40) Hemoglobin 10.5g/dL (12.0-15.5) L Hematocrit 34.1% (36.0-47.0) L Mean Corpuscular Volume 98fL (79-100) Mean Corpuscular Hemoglobin 30pg (25-35) Mean Corpuscular Hemoglobin Concent 31g/dL (31-37) Red Cell Distribution Width 19.2% (11.5-14.5) H Platelet Count 322x10^3/uL (140-400) Neutrophils (%) (Auto) 84% (31-73) H Lymphocytes (%) (Auto) 5% (24-48) L Monocytes (%) (Auto) 11% (0-9) H Eosinophils (%) (Auto) 0% (0-3) Basophils (%) (Auto) 0% (0-3) Neutrophils # (Auto) 9.7x10^3uL (1.8-7.7) H Lymphocytes # (Auto) 0.6x10^3/uL (1.0-4.8) L Monocytes # (Auto) 1.2x10^3/uL (0.0-1.1) H Eosinophils # (Auto) 0.0x10^3/uL (0.0-0.7) Basophils # (Auto) 0.0x10^3/uL (0.0-0.2) Prothrombin Time 17.7SEC (11.7-14.0) H Prothrombin Time INR 1.6 (0.8-1.1) H PTT 37SEC (24-38) Sodium Level 149mmol/L (136-145) H Potassium Level 5.6mmol/L (3.5-5.1) H Chloride Level 107mmol/L (98-107) Carbon Dioxide Level 24mmol/L (21-32) Anion Gap 18 (6-14) H Blood Urea Nitrogen 53mg/dL (7-20) H Creatinine 2.9mg/dL (0.6-1.0) H Estimated GFR (Cockcroft-Gault) 15.5 BUN/Creatinine Ratio 18 (6-20) Glucose Level 53mg/dL (70-99) L Lactic Acid Level 7.6mmol/L (0.4-2.0) *H Calcium Level 8.8mg/dL (8.5-10.1) Total Bilirubin 1.5mg/dL (0.2-1.0) H Aspartate Amino Transferase (AST) 761U/L (15-37) H Alanine Aminotransferase (ALT) 323U/L (14-59) H Alkaline Phosphatase 230U/L (46-116) H Troponin I Quantitative 0.087ng/mL (0.000-0.055) Total Protein 6.2g/dL (6.4-8.2) L Albumin 3.2g/dL (3.4-5.0) L Albumin/Globulin Ratio 1.1 (1.0-1.7) Salicylates Level < 2.8mg/dL (2.8-20.0) L Salicylate Last Dose Date Unknown Salicylate Last Dose Time Unknown Acetaminophen Level < 2mcg/ml (10-30) L Acetaminophen Last Dose Date Unknown Acetaminophen Last Dose Time Unknown Laboratory Tests 12/25/16 09:25 Laboratory Tests 12/25/16 09:25 EKG EKG EKG (my read): sinus rhythm, rate 108, normal axis, no acute ST/T changes Radiology/Procedures Radiology/Procedures CXR: Impression: 1. Endotracheal tube and endogastric tube are in place. 2. Suspected emphysema. CT head: Impression: No acute intracranial findings. Brain parenchymal volume loss and probable small vessel ischemic disease. Consider MRI if further imaging is warranted. Course & Med Decision Making Course & Med Decision Making Pertinent Labs and Imaging studies reviewed. (See chart for details) Patient is critically ill 85-year-old female who presents with unresponsiveness and agonal respirations. Patient has form with her indicating she is at least partial DNR. I was able to quickly get on the phone with patient's son, Harjeet; we decided upon intubation (at least for the short term) but would respect DNR wishes and not perform CPR if patient was to have cardiac arrest. Patient therefore intubated emergently. IV fluids, broad-spectrum antibiotics started empirically. EKG, chest x-ray, CT head, labs ordered to evaluate. Imaging results as above. EKG okay per my read. Labs notable for multiple organ system abnormality, including acute kidney injury, elevated LFTs, mildly elevated troponin. Lactic acid elevated. Hyperkalemic, calcium gluconate ordered. Noted be hypoglycemic, amp of D50 ordered as well. Discussed results with patient's son. Discussed with Dr. Guillen, will admit under her care for further evaluation and treatment. Critical care time: 40 minutes critical care time spent with this patient. This does not include any time spent on procedures Dragon Disclaimer Dragon Disclaimer This electronic medical record was generated, in whole or in part, using a voice recognition dictation system. PROCEDURE Procedure Indication: Respiratory failure Consent: Unable to give consent due to emergent nature; verbal consent obtained from patient's son. Medications Used: see nursing note Procedure: The patient was placed in the appropriate position. Intubation was performed video laryngoscopy with Glidescope. Intubated with 6.5cuffed endotracheal tube. Secured at 21cm at lip. Initial confirmation of placement included bilateral breath sounds, tube fogging, adequate chest rise, adequate pulse oximetry reading. A chest x-ray to verify correct placement of the tube showed appropriate tube position. The patient tolerated the procedure well. Complications: Missed first attempt with 7.5 cuffed tube; able to intubate successfully with 6.5. Departure Departure Impression: Primary Impression: Respiratory failure Additional Impression: Unresponsive Disposition: ADMITTED INPATIENT Admitting Physician: Other Condition: CRITICAL Referrals: SOFÍA LONDON M.D. (PCP) Problem Qualifiers BLANCA NEWMAN MD Dec 25, 2016 10:21
[2016-12-25] MEDS ORDERED: ONDANSETRON PF 4 MG/2 ML VIAL. IV PRN (10:30)
[2016-12-25] MEDS ORDERED: MIDAZOLAM HCL 2 MG/2 ML VIAL. IV ONE (10:45)
[2016-12-25 11:06] LABS: HCO3 ABG 19 mmol/L (21-28); PCO2 ABG 51 mmHg (35-46); PO2 ABG 501 mmHg (65-108); SAT O2 ABG 100 % (92-99)
--- NOTE | 2016-12-25 11:12 | EKG ---
[facility] [address] [place] [address] Test Date: 2016-12-25 Test Time: 09:50:35 Pat Name: STARLA HOFF Department: Room: Gender: F Translator/Interpreter: : 1930 Requested By: BLANCA NEWMAN Order Number: [id number] Reading MD: Marika Kaur Measurements Intervals [place] Rate: 108 P: 109 AR: 144 QRS: 56 QRSD: 70 T: 17 QT: 338 QTc: 457 Interpretive Statements SINUS TACHYCARDIA NO SPECIFIC ECG ABNORMALITIES RI6.01 Compared to ECG 06/28/2016 02:07:57 Sinus rhythm no longer present Electronically Signed On 12-25-2016 15:22:14 CDT by Marika Kaur
--- NOTE | 2016-12-25 11:15 | ACF ---
Admit Criteria Forms Admit Criteria Forms Admit Criteria Forms RESPIRATORY FAILURE GRG Clinical Indications for Admission to Inpatient Care (Place 'X' for any and all applicable criteria): Hospital admission is needed for appropriate care of the patient because of acute respiratory failure or insufficiency as indicated by ANY ONE of the following(1)(2)(3)(4)(5)(6)(7)(8): [X]I. Mechanical ventilation needed (acute invasive or noninvasive) [ ]II. Severe ventilation deficit as indicated by ANY ONE of the following (9) [ ]a) Respiratory acidosis (pH less than 7.32 and partial pressure of carbon dioxide greater than 40 mm Hg (5.3 kPa)) [ ]b) Partial pressure of carbon dioxide greater than 44 mm Hg (5.9 kPa ) (new) [ ]c) Airflow measurements less than 25% of predicted (eg, peak expiratory flow rate less than 100 L/minute) [ ]d) Forced vital capacity less than 15 mL/kg of ideal body weight, or 50% decrease in vital capacity from baseline [ ]III. Noncardiac pulmonary edema not resolving with rapid emergency treatment (8) [ ]IV. Severe respiratory distress as indicated by ANY ONE of the following: [ ]a) Severe tachypnea (respiratory rate greater than 30, greater than 45 for 6-month-old, greater than 60 for ) [ ]b) Severe hypoxemia (partial pressure of oxygen less than 50 mm Hg ( 6.7 kPa) on greater than 50% oxygen or partial pressure of oxygen to FIO2 ratio less than 200) [ ]c) Mental status deterioration from respiratory disease [ ]V. Airway obstruction or inadequate protection [A](10)(11) The original [employer] content created by [employer] has been revised. The portions of the content which have been revised are identified through the use of italic text or in bold, and [employer] has neither reviewed nor approved the modified material. All other unmodified content is copyright [employer]. Please see references footnoted in the original [employer] edition 2016 JULIA HATHAWAY Dec 25, 2016 11:15
--- NOTE | 2016-12-25 11:42 | RAD ---
Clinical Indication: Unresponsive Technique: Study is dated December 25, 2016. CT images of the head were obtained from the skull base to the vertex without IV contrast. Images were repeated for motion. There are no comparison studies available. One or more of the following individualized dose reduction techniques were utilized for this examination: 1. Automated exposure control 2. Adjustment of the mA and/or kV according to patient size 3. Use of iterative reconstruction technique Findings: There is diffuse, symmetric prominence of the ventricles and subarachnoid spaces consistent with age-related parenchymal volume loss. There are areas of scattered decreased attenuation in the supratentorial white matter. While nonspecific, findings are likely secondary to small vessel ischemic disease. 1 cm calcification projecting over the high left frontal lobe could represent small calcified meningioma or dural calcification. There is no hemorrhage, extraaxial fluid collection, or midline shift. There is no large vascular distribution infarct. The posterior fossa and brain stem are unremarkable. Orbits are normal. The visualized paranasal sinuses are clear. There is no skull fracture appreciated on bone level images. Impression: No acute intracranial findings. Brain parenchymal volume loss and probable small vessel ischemic disease. Consider MRI if further imaging is warranted.
[2016-12-25 12:00] VITALS: BP 75/37
[2016-12-25] MEDS ORDERED: IV NORMAL SALINE 500ML BAG 500 ML IV ONE (12:45)
[2016-12-25] MEDS ORDERED: ETOMIDATE 20 MG/10 ML VIAL. IV ONE (13:19)
[2016-12-25] MEDS ORDERED: SUCCINYLCHOLINE 200 MG/10 ML VIAL. ONE (13:20)
[2016-12-25] MEDS ORDERED: MIDAZOLAM HCL/PF 5 MG/5 ML VIAL ONE (13:21)
[2016-12-25] MEDS ORDERED: SCOPOLAMINE 1.5MG PATCH. TD ONE (14:00)
[2016-12-25] MEDS ORDERED: MORPHINE SULFATE 4 MG/ML DISP.SYRIN. IV ONE (14:00)
[2016-12-25] MEDS ORDERED: MORPHINE SULFATE 2 MG/ML DISP.SYRIN. IV PRN (14:00)
[2016-12-25] MEDS ORDERED: PIPERACILLIN/TAZOBACTAM 2.25 GM in IV NORMAL SALINE 50ML 50 ML IV SCH (16:00)
[2016-12-25 17:06] LABS: PH ABG 7.18 (7.35-7.45)
[2016-12-25 17:07] LABS: FIO2 ABG 100
--- NOTE | 2016-12-25 20:04 | SSS ---
ADMIT DATE: 12/25/2016 CHIEF COMPLAINT: Agonal breathing. HISTORY OF PRESENT ILLNESS: The patient is an 83-year-old woman with past medical history of hypoxia, muscle weakness, who recently had sustained a hip fracture for which she had been sent to rehab. She actually just returned back to her assisted living facility, [facility], yesterday. She was found this morning unresponsive in agonal breathing and was brought to the Emergency Room. There, she was found in multiorgan failure and was intubated despite DNR being available. DNI had not been specifically established. The patient is now in the ICU on ventilator support. Past medical, social and family history were obtained from family as well as historical chart. PAST MEDICAL HISTORY: History of PE, postherpetic neuralgia, general muscle weakness, hypoxemia. FAMILY HISTORY: unknown SOCIAL HISTORY: Currently in assisted living. No history of toxic habits. ALLERGIES: No known drug allergies. HOME MEDICATIONS: Reconciled with [facility]. REVIEW OF SYSTEMS: Unable to obtain as the patient is intubated. PHYSICAL EXAMINATION: VITAL SIGNS: From today show a blood pressure of 83/37, heart rate of 104, respiratory rate at 23 ventilated, 100% pulse ox. GENERAL: This is a frail 85-year-old woman, sedated, intubated. LUNGS: Fairly clear. CARDIOVASCULAR: Tachycardic. ABDOMEN: Cachectic, positive bowel sounds, soft, nontender. EXTREMITIES: Showed no edema. SKIN: Warm, soft and dry. LABORATORY DATA: CBC with a WBC of 11.5, hemoglobin 10.5, platelets of 322. Chemistries with a BUN and creatinine of 53 and 2.9, sodium of 149, potassium at 5.6 and bicarbonate at 24. LFTs with an AST, ALT of 761 and 323 respectively, alkaline phosphatase at 230, troponin at 0.087, albumin at 3.2, multiple lactates in the 6.2-8.3 range. RADIOGRAPHIC STUDIES: Chest x-ray from the Emergency Room shows no airspace disease. Heart is not enlarged. No heart failure. HOSPITAL COURSE: The patient was admitted to the ICU on ventilator support. Blood pressures remain soft. Discussions were held with both sons, one of whom is DPOA. A decision was unanimous to stop further support and follow her wishes of DNR. She was therefore terminally extubated and 30 minutes later at 15:06. DISCHARGE DATE: 12/25/2016. CONDITION: . TUNG HERNÁNDEZ MD DR: Bruce JOB#: [id number] / [id number]
[2016-12-27] MEDS ORDERED: VANCOMYCIN RANDOM LEVEL. MC ONE (10:00)
== END 2016-12-25 13:16 | disposition expired | DRG 208 ==
LOC: ER 09:22 → 1 WEST ICU 10:17
PROVIDERS: ADMIT Internal Medicine Hematology & Oncology; ATTEND Internal Medicine Hematology & Oncology
PROC: 5A1935Z Respiratory Ventilation, Less than 24 Consecutive Hours (ICD-10-PCS; principal; 2016-12-25)
PROC: 0BH17EZ Insertion of Endotracheal Airway into Trachea, Via Natural or Artificial Opening (ICD-10-PCS; 2016-12-25)
DX: J96.00 Acute respiratory failure, unspecified whether with hypoxia or hypercapnia (principal); Z68.1 Body mass index [BMI] 19.9 or less, adult; N17.9 Acute kidney failure, unspecified; Z66 Do not resuscitate; E87.5 Hyperkalemia; E16.2 Hypoglycemia, unspecified; Z86.711 Personal history of pulmonary embolism
CPT/HCPCS: 31500; 36415; 36600; 51702; 70450; 71010; 80053; 82805; 83605; 84484; 85027; 85610; 85730; 86850; 86900; 86901; 87040; 87205; 87641; 93005; 94002; 94660; 96365; 96367; 96368; 96375; C9113; G6038; J0610; J2250; J2270; J2543; J3370; J7030; J7040; J7042; J7050; 80196; 99291-25